=== PATIENT | male | born 2000 | race Asian ===

== ENCOUNTER 2024-11-12 13:23 | Inpatient (IN) | payer BC ==
[2024-11-12 14:22] VITALS: BMI 20.5
[2024-11-12] MEDS ORDERED: hydrOXYzine PAMOATE 25 MG CAPSULE (FP) PO PRN (16:38)
[2024-11-12] MEDS ORDERED: POLYETHYLENE GLYCOL (HEALTHYLAX) 3350 17 GM PACKET PO PRN (16:38)
[2024-11-12] MEDS ORDERED: LOPERAMIDE HCL 2 MG CAPSULE PO PRN (16:38)
[2024-11-12] MEDS ORDERED: MAGNESIUM HYDROX 2400MG/30ML ORAL SUSPENSION 30 ML CUP PO PRN (16:38)
[2024-11-12] MEDS ORDERED: IBUPROFEN 400 MG TABLET (FP) PO PRN (16:38)
[2024-11-12] MEDS ORDERED: BENZONATATE 200 MG CAPSULE PO PRN (16:38)
[2024-11-12] MEDS ORDERED: IBUPROFEN 600 MG TABLET (FP) PO PRN (16:38)
[2024-11-12] MEDS ORDERED: METHOCARBAMOL 500 MG TABLET PO PRN (16:38)
[2024-11-12] MEDS ORDERED: DICYCLOMINE HCL 10 MG CAPSULE PO PRN (16:38)
[2024-11-12] MEDS ORDERED: guaiFENesin 600 MG TABLET.ER (FP) PO PRN (16:38)
[2024-11-12] MEDS ORDERED: BISMUTH SUBSALICYLATE 524 MG/30 ML PO PRN (16:38)
[2024-11-12] MEDS ORDERED: MAG HYDROX/AL HYDROX/SIMETH 30 ML UNIT-DOSE CUP PO PRN (16:38)
[2024-11-12] MEDS ORDERED: ONDANSETRON *ODT* 4 MG TABLET SL PRN (16:38)
[2024-11-12] MEDS ORDERED: NALOXONE (NARCAN) HCL 4 MG/0.1 ML SPRAY NS PRN (16:38)
[2024-11-12] MEDS ORDERED: ACETAMINOPHEN 325 MG TABLET (FP) PO PRN (16:38)
[2024-11-12] MEDS ORDERED: BENZOCAINE/MENTHOL (CHLORASEPTIC ) LOZENGE MM PRN (16:38)
[2024-11-12] MEDS ORDERED: chlordiazePOXIDE HCL 25 MG CAPSULE PO PRN (16:38)
[2024-11-12] MEDS: THIAMINE 100 MG TABLET PO SCH (22:25)
[2024-11-12] MEDS: MELATONIN 5 MG TABLETS PO SCH (22:25)
[2024-11-12] MEDS: chlordiazePOXIDE HCL 25 MG CAPSULE PO SCH (22:57)
[2024-11-13 09:12] LABS: CHLORIDE 101 mmol/L (98-107); POTASSIUM 4.1 mmol/L (3.5-5.1); SODIUM 136 mmol/L (136-145)
[2024-11-13 09:32] LABS: ANION GAP 7 mmol/L (4-13); CALCIUM 10.3 mg/dL (8.5-10.1); CO2 28 mmol/L (21-32)
[2024-11-13 09:33] LABS: ALBUMIN 4.6 g/dl (3.4-5.0); BLOOD UREA NITROGEN 12.9 mg/dL (7-18); GLUCOSE,RANDOM 79 mg/dL (74-106)
[2024-11-13 09:35] LABS: SGPT/ALT 35 U/L (13-61)
[2024-11-13 09:36] LABS: CREATININE 1.1 mg/dL (0.55-1.3); SGOT/AST 33 U/L (15-37)
[2024-11-13 09:37] LABS: BILIRUBIN,TOTAL 1.6 mg/dL (0.2-1); TOT PROT 8.2 g/dl (6.4-8.2)
[2024-11-13 09:39] LABS: ALK PHOS 67 U/L (45-117); HEMATOCRIT 47.1 % (35.4-49); HEMOGLOBIN 15.9 GM/dL (11.7-16.9); MCH 33.3 pg (25.7-33.7); MCHC 33.8 g/dl (32.0-35.9); MEAN CELL VOLUME 98.7 fl (80-96); MEAN PLT VOLUME 7.8 fl (7.5-11.1); PLATELET COUNT 321 10^3/uL (134-434); RBC 4.77 M/mm3 (4.00-5.60); RDW 12.2 % (11.9-15.9); WHITE BLOOD COUNT 6.2 K/mm3 (4.0-10.0)
[2024-11-13] MEDS: PRENATAL VITAMINS W/ FOLIC ACID TABLET (FP) PO SCH (10:27)
[2024-11-14] MEDS: chlordiazePOXIDE HCL 25 MG CAPSULE PO SCH (05:25)
[2024-11-14] MEDS: NICOTINE POLACRILEX 2 MG GUM BUC PRN (17:27)
[2024-11-15] MEDS ORDERED: chlordiazePOXIDE HCL 10 MG CAPSULE PO PRN
[2024-11-15] MEDS: chlordiazePOXIDE HCL 10 MG CAPSULE PO SCH (05:26)
[2024-11-15] MEDS: NICOTINE 14 MG/24 HOURS TOPICAL PATCH TD SCH (10:31)
[2024-11-15] MEDS: cloNIDine HCL 0.1 MG TABLET PO PRN (21:00)
[2024-11-16] MEDS: chlordiazePOXIDE HCL 10 MG CAPSULE PO SCH (05:55)
[2024-11-16] MEDS: NALTREXONE HCL 50 MG TABLET PO SCH (10:54)
[2024-11-16] MEDS: NALOXONE (NYS OPIOID OVERDOSE PROGRAM) 4 MG/0.1 ML SPRAY NS SCH (11:03)
[2024-11-17] MEDS: chlordiazePOXIDE HCL 10 MG CAPSULE PO ONE (05:20)
[2024-11-17 06:14] VITALS: RESP 16
[2024-11-17 09:15] VITALS: BP 141/75; PULSE 60; TEMP 97.7
== END 2024-11-17 11:05 | disposition home or self-care (01) | DRG 775 ==
LOC: YASAS 13:23 → Y6N 17:22
PROVIDERS: ADMIT Allergy & Immunology; ATTEND Surgery
PROC: HZ2ZZZZ Detoxification Services for Substance Abuse Treatment (ICD-10-PCS; principal; 2024-11-12)
DX: F10.230 Alcohol dependence with withdrawal, uncomplicated (principal); F12.20 Cannabis dependence, uncomplicated; F17.210 Nicotine dependence, cigarettes, uncomplicated; F41.9 Anxiety disorder, unspecified
CPT/HCPCS: 36415; 80053; 80305; 80307; 82247; 82310; 85027; 86780; 93005; 93010